=== PATIENT | female | born 1960 | race Caucasian/White ===

== ENCOUNTER → 2017-12-29 | Outpatient (CLI) | payer BC ==
[2017-12-29 13:19] LABS: TRIGLYCERIDES 68 mg/dL (<150)
[2017-12-29 13:30] LABS: DIRECT LDL 56 mg/dL (<100)
== END ==
LOC: OD 11:33
PROVIDERS: ATTEND Internal Medicine
DX: E78.5 Hyperlipidemia, unspecified (principal); E53.9 Vitamin B deficiency, unspecified; E03.9 Hypothyroidism, unspecified
CPT/HCPCS: 36415; 80061; 82607; 84443

== ENCOUNTER → 2018-04-11 | Outpatient (CLI) | payer BC ==
--- NOTE | 2018-04-11 18:44 | XCELERA REPORT ---
[address] [address] Transthoracic Echocardiogram Report Name: LEILANI CAREY Age: 57 yrs Gender: Female : 1960 Patient Status: Outpatient Patient Location: Study Date: 04/11/2018 10:21 AM Height: 66 in Weight: 177 lb BSA: 1.9 m2 Procedure: A two-dimensional transthoracic echocardiogram with color flow and Doppler was performed. The study was technically difficult with many images being suboptimal in quality. Reason For Study: MURMUR History: MURMUR. Ordering Physician: ABBIE RODRÍGUEZ Performed By: Steven Woodward Interpretation Summary The left ventricle is normal in size. There is normal left ventricular wall thickness. LV EF is > priya 60% Left ventricular systolic function is normal. The left ventricular wall motion is normal. Doppler measurements suggest impaired left ventricular relaxation, which is associated with grade I/IV or mild diastolic dysfunction There is no thrombus. The right ventricle is normal in size and function. The right atrium is normal. The left atrial size is normal. There is no evidence of mitral valve prolapse. There is no vegetation seen on the mitral valve. There is no mitral valve stenosis. There is a trace amount of mitral regurgitation There is no aortic valve stenosis There is no LVOT obstruction. No aortic regurgitation is present. There is a trace amount of tricuspid regurgitation Unable to calculate RVSP due lack of TR jet. There is no pulmonic valvular stenosis. There is a trace amount of pulmonic regurgitation The aortic root is normal size. There is no pericardial effusion. MMode/2D Measurements & Calculations RVDd: 2.7 cm LVIDd: 3.9 cm FS: 32.8 % Ao root diam: 2.6 cm IVSd: 1.0 cm LVIDs: 2.6 cm EDV(Teich): 65.1 ml Ao root area: 5.3 cm2 LVPWd: 0.97 cm ESV(Teich): 24.7 ml LA dimension: 3.5 cm EF(Teich): 62.0 % Doppler Measurements & Calculations MV E max colin: MV P1/2t max colin: Ao V2 max: LV V1 max P.7 cm/sec 61.0 cm/sec 163.7 cm/sec 3.2 mmHg MV A max colin: MV P1/2t: 117.0 msec Ao max P.7 mmHgLV V1 max: 72.2 cm/sec MVA(P1/2t): 1.9 cm2 89.8 cm/sec MV E/A: 0.91 MV dec slope: 152.7 cm/sec2 MV dec time: 0.20 sec PA V2 max: PI end-d colin: MV P1/2t-pr_phl: 89.3 cm/sec 80.7 cm/sec 117.0 msec PA max P.2 mmHg Left Ventricle The left ventricle is normal in size. There is normal left ventricular wall thickness. LV EF is > priya 60%. Left ventricular systolic function is normal. Doppler measurements suggest impaired left ventricular relaxation, which is associated with grade I/IV or mild diastolic dysfunction. The left ventricular wall motion is normal. There is no thrombus. Right Ventricle The right ventricle is normal in size and function. Atria The right atrium is normal. The left atrial size is normal. Mitral Valve There is no evidence of mitral valve prolapse. There is no vegetation seen on the mitral valve. There is no mitral valve stenosis. There is a trace amount of mitral regurgitation. Aortic Valve There is no aortic valvular vegetation. There is no aortic valve stenosis. There is no LVOT obstruction. No aortic regurgitation is present. Tricuspid Valve There is no tricuspid stenosis. There is a trace amount of tricuspid regurgitation. Unable to calculate RVSP due lack of TR jet. Pulmonic Valve There is no pulmonic valvular stenosis. There is a trace amount of pulmonic regurgitation. Great Vessels The aortic root is normal size. The IVC is dilated, but has some respiratory collapse suggesting high central venous pressures. Effusions There is no pericardial effusion. : ABBIE RODRÍGUEZ > Belkis Tirado
== END ==
LOC: SP 09:51
PROVIDERS: ATTEND Internal Medicine
DX: I77.1 Stricture of artery (principal)
CPT/HCPCS: 93306

== ENCOUNTER → 2018-06-10 | Outpatient (CLI) | payer BC ==
[2018-06-10 12:59] LABS: ANION GAP 7 (5-19); BLOOD UREA NITROGEN 16 mg/dL (7-20); CALCIUM 9.3 mg/dL (8.4-10.2); CARBON DIOXIDE 31 mmol/L (22-30); CHLORIDE 103 mmol/L (98-107); GLUCOSE 95 mg/dL (75-110); POTASSIUM 3.8 mmol/L (3.6-5.0); SODIUM 141.4 mmol/L (137-145)
== END ==
LOC: OD 11:41
PROVIDERS: ATTEND Internal Medicine
DX: N19 Unspecified kidney failure (principal); E03.9 Hypothyroidism, unspecified
CPT/HCPCS: 36415; 80048; 84443

== ENCOUNTER → 2020-05-27 | Outpatient (CLI) | payer BC ==
[~2020-05-27] MED LIST: COVID-19 VACCINE (PFIZER)/PF 30 MCG/0.3 ML VIAL IM ONE; EPINEPHRINE INJ/PF 1 MG/1 ML AMPULE IM PRN
== END ==
LOC: EMPHEALTH 14:42
PROVIDERS: ATTEND Internal Medicine
DX: Z23 Encounter for immunization (principal)
CPT/HCPCS: 91300